=== PATIENT | female | born 1965 | race Caucasian/White ===

== ENCOUNTER 2020-05-15 04:50 | Emergency (ER) | payer MEDICAID ==
[~2020-05-15] VITALS: Ht 160 cm; Wt 50.0 kg
[2020-05-15 04:56] VITALS: BP 147/94
[2020-05-15] MEDS ORDERED: IBUP-1984 PO (05:04)
[2020-05-15] MEDS ORDERED: ibuprofen tablet 400 MG TABLET PO ONE (05:05)
== END 2020-05-15 05:11 | disposition home or self-care (01) ==
LOC: ER 04:51
DX: M79.671 Pain in right foot (principal); M79.672 Pain in left foot; I10 Essential (primary) hypertension; F17.200 Nicotine dependence, unspecified, uncomplicated; Z59.0 Homelessness
CPT/HCPCS: 99282; 99283

== ENCOUNTER 2020-05-16 00:28 | Emergency (ER) | payer MEDICAID ==
[~2020-05-16] VITALS: Ht 160 cm; Wt 65.0 kg
[~2020-05-16 00:28] MED LIST: IBUP-1984 PO
[2020-05-16 00:33] VITALS: BP 160/109
--- NOTE | 2020-05-16 01:20 | NUR ---
Pt. very peculiar, speaking non-sensically. She appears to be responding to internal stimuli and demonstrating paranoid behaviors. Pt. is stating that she is being stalked online and other conspiracy theory statements.
--- NOTE | 2020-05-16 02:09 | NUR ---
PT MARCELO - AWARE, HE WAS INTUBATING ANOTHER PATIENT AND PLACING A CENTRAL LINE AND UNABLE TO SEE PATIENT.
== END 2020-05-16 02:56 | disposition left against medical advice (07) ==
LOC: ER 00:29
DX: M79.673 Pain in unspecified foot (principal); Z53.21 Procedure and treatment not carried out due to patient leaving prior to being seen by health care provider

== ENCOUNTER 2020-05-23 11:38 | Emergency (ER) | payer MEDICAID ==
[~2020-05-23] VITALS: Ht 160 cm; Wt 60.0 kg
[2020-05-23 11:47] VITALS: BP 163/94
--- NOTE | 2020-05-23 12:00 | NUR ---
PT REFUSING TO REMOVE SHOES AND SOCK UNTIL PROVIDER COMES INTO THE ROOM. OT JUAN R "I HAVE A FOOT FETISH".
--- NOTE | 2020-05-23 12:00 | NUR ---
awaiting ed provider.
[2020-05-23] MEDS ORDERED: GABA-530 PO (12:55)
[2020-05-23] MEDS ORDERED: TRIA15CR61 TP (12:56)
== END 2020-05-23 13:11 | disposition home or self-care (01) ==
LOC: ER 11:39
DX: L29.9 Pruritus, unspecified (principal); M79.671 Pain in right foot; M79.672 Pain in left foot; I10 Essential (primary) hypertension; Z59.0 Homelessness; Z79.899 Other long term (current) drug therapy
CPT/HCPCS: 99284